=== PATIENT | male | born 1975 | race Caucasian/White ===

== ENCOUNTER 2018-03-15 11:04 | Day surgery (SDC) | payer OTHER ==
[2018-03-15] MEDS ORDERED: LIDOCAINE 1% 300 MG/30 ML SDV ONE (11:27)
[2018-03-15] MEDS ORDERED: ROPIVACAINE HCL 150 MG/30 ML INJ ONE (11:28)
[2018-03-15] MEDS ORDERED: BACITRACIN 50,000 UNITS/10 ML SYR IRR ONE (11:28)
[2018-03-15] MEDS ORDERED: BUPIVACAINE 0.5% 30 ML SDV ONE (11:28)
[2018-03-15] MEDS ORDERED: ceFAZolin 2 GM/DEXTROSE 100 ML IV ONE (11:54)
[2018-03-15] MEDS ORDERED: LR 1,000 ML IV ONE (12:02)
--- NOTE | 2018-03-15 12:18 | PDANEPAE ---
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 and treated with doxycycline - no residual - Pulmonary History Hx COPD: No Hx Asthma/Reactive Airway Disease: No Hx Recent Upper Respiratory Infection: No Hx Oxygen in Use at Home: No Hx Sleep Apnea: No Sleep Apnea Screening Result - Last Documented: Negative - Neurologic History Hx Cerebrovascular Accident: No Hx Seizures: No Hx Dementia: No - Endocrine History Hx Diabetes: No - Renal History Hx Renal Disorders: No - Liver History Hx Hepatic Disorders: No - Neurological & Psychiatric Hx Hx Neurological and Psychiatric Disorders: Yes Neurological / Psychiatric History Comment: depression, situational - going through a divorce - Cancer History Hx Cancer: No - Congenital Disorder History Hx Congenital Disorders: No - GI History Hx Gastrointestinal Disorders: No - Other Health History Other Health History: NEG - Chronic Pain History Chronic Pain: No - Surgical History Prior Surgeries: left plantar release, 2016. FIBULA R. L WRIST. WISDOM TEETH ANE Review of Systems Review of Systems: - Exercise capacity METS (RN): 5 METS ANE Patient History - Allergies Allergies/Adverse Reactions: No Known Allergies Allergy (Verified 02/28/18 16:09) - Home Medications Home medications: home medication list seen and reviewed Home Medications: Adderall 20 mg (*) 02/28/18 [Last Taken Unknown] Testosterone 02/28/18 [Last Taken 1 Day Ago ~03/14/18] Wellbutrin Sr 02/28/18 [Last Taken 1 Day Ago ~03/14/18] - NPO status NPO Since - Liquids (Date): 03/15/18 NPO Since - Liquids (Time): 03:00 NPO Since - Solids (Date): 03/15/18 NPO Since - Solids (Time): 03:00 - Anes Hx Anes Hx: no prior problems (Mild neasuea ) - Smoking Hx Smoking Status: Never smoked - Family Anes Hx Family Hx Anesthesia Complications: NEG ANE Labs/Vital Signs - Vital Signs Blood Pressure: 131/71 Heart Rate: 53 Respiratory Rate: 16 O2 Sat (%): 98 Height: 193.04 cm Weight: 90.718 kg ANE Physical Exam - Airway Neck exam: FROM Mallampati Score: Class 2 Mouth exam: normal dental/mouth exam - Pulmonary Pulmonary: no respiratory distress - Cardiovascular Cardiovascular: regular rate and rhythym - ASA Status ASA Status: I ANE Anesthesia Plan Anesthesia Plan: MAC
[2018-03-15] MEDS ORDERED: MIDAZOLAM 2 MG/2 ML VIAL ONE (12:24)
[2018-03-15] MEDS ORDERED: MIDAZOLAM 2 MG/2 ML VIAL IVP ONE (12:27)
--- NOTE | 2018-03-15 12:30 | PDHPUP ---
History & Physical Update H&P update statement: This history and physical update is based on an assessment of the patient which was completed after admission or registration (within 24 hours), but prior to the surgery/procedure. H&P update: H&P reviewed & patient examined (no changes in health), no change in patient's condition since H&P completed
[2018-03-15] MEDS ORDERED: LIDOCAINE 2% 2 ML INJ ONE (12:32)
[2018-03-15] MEDS ORDERED: PROPOFOL/EMULSION 500 MG/50 ML BOTTLE IV ONE (12:32)
[2018-03-15] MEDS ORDERED: NALOXONE HCL 0.4 MG/ML INJ IVP PRN (13:16)
[2018-03-15] MEDS ORDERED: fentaNYL 100 MCG/2 ML INJ IVP PRN (13:16)
[2018-03-15] MEDS ORDERED: ONDANSETRON 4 MG/2 ML VIAL IVP PRN (13:16)
[2018-03-15] MEDS ORDERED: HYDROmorphONE/DILAUDID 2 MG/ML INJ IVP PRN (13:16)
[2018-03-15] MEDS ORDERED: OXYCODONE/APAP 5/325 TAB PO PRN (13:41)
--- NOTE | 2018-03-15 13:41 | POSTOPPROG ---
Post Op Note Date of Operation: 03/15/18 Surgeon: Teri Vasquez It Account Manager: Livia Vasquez Anesthesiologist: Andre Nuñez Pre-op Diagnosis: plantar fasciitis, recalcitrant right Post-op Diagnosis: same Indication: pain Procedure: plantar fasciotomy right Findings: thickening plantar fascia Inf/Abcess present in the surg proc area at time of surgery?: No EBL: Minimal Complications: none
--- NOTE | 2018-03-15 13:44 | POSTANESTH ---
Post Anesthetic Evaluation Cardiovascular Status: Similar to Pre-Op Cond Respiratory Status: Similar to Pre-op Cond. Level of Consciousness/Mental Status: Can Participate in Eval Pain Control: Adequate, Prn Tx Ordered Nausea/Vomiting Control: Adequate, Prn Tx Ordered Complications Possibly Related to Anesthesia: None Noted
[2018-03-15 14:23] VITALS: BP 108/67
--- NOTE | 2018-03-16 04:05 | GOP ---
DATE OF OPERATION: 03/15/2018 SURGEON: Teri Vasquez DPM [employer] NURSE: Livia Vasquez DPM ANESTHESIA: IV sedation with local. ANESTHESIOLOGIST: Andre Nuñez MD PREOPERATIVE DIAGNOSIS: Recalcitrant plantar fasciitis, right. POSTOPERATIVE DIAGNOSIS: Recalcitrant plantar fasciitis, right. PROCEDURE PERFORMED: Partial plantar fasciotomy, right foot. FINDINGS: INDICATIONS: The patient presents to the hospital approximately an hour and a half prior to foot garcia anastacia after having been n.p.o. past midnight. The patient's preoperative history and physical and all studies were reviewed and there are no contraindications to the proposed procedure. The patient was given Ancef 2 g IV one-half hour prior to foot surgery. DESCRIPTION OF PROCEDURE: The patient was taken to the OR room, placed on the OR table in a supine p osition where the appropriate anesthetic agents were administered. This was supplemented with a loca l block performed to the right ankle utilizing a total of 5 cc of 1% lidocaine plain and 15 cc of 0.5 % ropivacaine. The right lower extremity was then prepped and draped in the usual aseptic fashion, c overed with a sterile stockinette. A sterile pneumatic ankle tourniquet was applied and padded well underneath with Webril. Utilizing elevation overlying Esmarch bandage, the right foot was exsanguina gerri and the tourniquet was inflated to a pressure of 250 mmHg. The foot was then lowered to the orth opedic table. Attention was then directed to the plantar aspect of the right heel where an approximately 2.5 to 3 c m linear longitudinal incision was made parallel to the skin lines. The incision was made just dista l to the area of the insertion of the plantar fascia. The incision was deepened through the subcutan eous tissues to the level of the plantar fascia, taking care to preserve the neurovascular structures . Any bleeders were cauterized. The medial band of the plantar fascia was identified and noted to b e significantly enlarged and hypertrophic. The [place] elevator was then utilized to identify the medi al margin of the plantar fascia and was placed then underneath the medial band of the plantar fascia as to protect the underlying muscle belly. The plantar fascia medial and central band was then expos ed, and utilizing a 15 blade, the medial band of the plantar fascia was released in a medial to later al direction, releasing approximately two-thirds of the plantar fascia, where the noted abnormal thic kness was present. A small wedge of the hypertrophic plantar fascia was excised, where it was releas ed and placed on the back table. There was no other soft tissue abnormality, and no significant abno rmality outside of increased thickness was noted to the plantar fascial band. Surgical site was copi ously irrigated with a sterile saline-bacitracin solution. The tourniquet was released and there was immediate capillary refill to all digits and hemostasis. The deep subcutaneous tissues were reappro ximated with 4-0 Monocryl. The skin was reapproximated utilizing horizontal and vertical mattress delong tures with 3-0 Prolene. Steri-Strips were applied and a mildly compressive dry sterile gauze dressin g utilizing 4 x 4 gauze and Kerlix. Sterile stockinette was applied, cast padding, and a posterior s plint held the foot at 90 degrees to the leg and was secured to the extremity with Blair wraps. The patient tolerated the procedures and anesthesia well and was transferred to the recovery room wit h vital signs stable and vascular status intact to the right lower extremity. In the recovery room, the patient received postoperative oral and written home care instructions. The patient was instruct ed on nonweightbearing on the right foot for the next several days, and is to utilize crutches for am bulation assist. The patient was instructed of the importance of keeping the foot at 90 degrees to t he leg for postoperative healing. The patient was dispensed a CryoCuff and instructed on its usage. The patient opted to take ibuprofen postoperatively for pain management. The procedure went well wi thout complications. The patient is scheduled to follow up in the office in 2 days. Please call the office earlier if any questions or problems should arise. /[id number]/MODL
== END 2018-03-15 14:55 | disposition home or self-care (01) ==
LOC: FSGY 11:04
PROVIDERS: ATTEND Podiatrist
PROC: 0KNV0ZZ Release Right Foot Muscle, Open Approach (ICD-10-PCS; principal; 2018-03-15 12:30)
DX: M72.2 Plantar fascial fibromatosis (principal)
CPT/HCPCS: J0690; J2250; J2704; J2795